=== PATIENT | female | born 1995 | race Caucasian/White ===

== ENCOUNTER 2024-03-04 22:40 | Emergency (ER) | payer OTHER ==
[~2024-03-04] VITALS: Ht 157.5 cm; Wt 102.1 kg
[2024-03-04 22:50] VITALS: BP_SYST 125; PULSE 85; RESP 20; TEMP 98.1; O2SAT 99
[2024-03-04 23:37] LABS: BILIRUBIN,URINE NEGATIVE (NEGATIVE); BLOOD, URINE 3+ (NEGATIVE); GLUCOSE,URINE NEGATIVE (NEGATIVE); KETONES,URINE NEGATIVE (NEGATIVE); LEUKOCYTE ESTERASE ,URINE TRACE (NEGATIVE); NITRITE, URINE NEGATIVE (NEGATIVE); PH,URINE 8.5 (5.0-8.0); PROTEIN URINE 2+ (NEGATIVE); UROBILINOGEN,URINE 0.2 (0.2-1.0)
[2024-03-04 23:48] LABS: CLARITY/URINE CLOUDY (CLEAR); COLOR,URINE RED (YELLOW)
[2024-03-04 23:50] LABS: BACTERIA,URINE FEW /HPF (None Seen); RBC,URINE >100 /HPF (0-3)
[2024-03-05 00:05] LABS: BASOPHILS % (AUTO) 0.2 % (0.0-2.0); EOSINOPHILS % (AUTO) 0.2 % (0.0-4.0); HEMATOCRIT 35.4 % (36-48); HEMOGLOBIN 11.8 g/dL (12.0-16.0); LYMPHOCYTES # (AUTO) 0.8 K/uL (1.0-5.5); LYMPHOCYTES % (AUTO) 4.9 % (20.5-51.5); MEAN CORPUSCULAR HEMOGLOBIN 29 pg (27-31); MEAN CORPUSCULAR HGB CONC 33 % (32-36); MEAN CORPUSCULAR VOLUME 87 fL (79.0-98.0); MONOCYTES # (AUTO) 0.6 K/uL (0.0-1.0); MONOCYTES % (AUTO) 3.5 % (1.7-9.3); NEUTROPHILS # (AUTO) 15.4 K/uL (1.8-7.7); NEUTROPHILS % (AUTO) 91.2 % (40.0-70.0); PLATELET COUNT (AUTO) 335 K/uL (130-430); RED BLOOD CELL COUNT(AUTO) 4.09 MIL/uL (4.2-6.2); RED CELL DISTRIBUTION WIDTH 13.3 % (9.0-15.0); WHITE BLOOD COUNT (AUTO) 16.9 K/uL (4.8-10.8)
[2024-03-05] MEDS: NACL 0.9% 1,000 ML IV ONE (00:14)
[2024-03-05] MEDS: ONDANSETRON HCL 4 MG/2 ML VIAL IVP ONE (00:15)
[2024-03-05 00:29] LABS: ALBUMIN 3.7 g/dL (3.4-4.8); BILIRUBIN,DIRECT 0.1 mg/dL (0.0-0.3); CALCIUM 8.5 mg/dL (8.4-11.0); CREATININE 0.84 mg/dL (0.55-1.30); POTASSIUM 3.7 mmol/L (3.5-5.1); TOTAL BILIRUBIN 0.5 mg/dL (0.0-1.0); TOTAL PROTEIN, SERUM 7.5 g/dL (6.4-8.3)
[2024-03-05] MEDS ORDERED: KETOROLAC TROMETHAMINE 30 MG VIAL ONE (00:36)
[2024-03-05] MEDS: KETOROLAC TROMETHAMINE 30 MG VIAL IVP ONE (00:38)
[2024-03-05] MEDS: cefTRIAXone 1 GM IVPB PREMIX 50 ML IV ONE (01:49)
[2024-03-05] MEDS ORDERED: CIPR500T5 PO (01:57)
[2024-03-05] MEDS ORDERED: ONDA-8 TL (01:57)
[2024-03-05 02:20] VITALS: BP_SYST 120; PULSE 80; RESP 19; TEMP 98.4; O2SAT 98
== END 2024-03-05 02:20 | disposition home or self-care (01) ==
LOC: SED 22:40
DX: N39.0 Urinary tract infection, site not specified (principal); R11.10 Vomiting, unspecified; R10.9 Unspecified abdominal pain; Z88.6 Allergy status to analgesic agent; Z79.899 Other long term (current) drug therapy
CPT/HCPCS: 99284; 80076; 80048; 81001; 83690; 85025; 87040; 87086; 36415; 81025; 81000; 96365; 96375; 96361; 81015; J0696; J1885; J2405; J7030